=== PATIENT | female | born 1970 | race Caucasian/White ===

== ENCOUNTER 2020-12-14 20:47 | Emergency (ER) | payer OTHER ==
--- NOTE | 2020-12-14 22:18 | EDM.PDOC ---
ED HPI GENERAL MEDICAL PROBLEM - General Chief Complaint: Skin Complaint Stated Complaint: POSSIBLE CELLULITIS Time Seen by Provider: 12/14/20 22:00 Source of Information: Reports: Patient History Limitations: Reports: No Limitations - History of Present Illness INITIAL COMMENTS - FREE TEXT/NARRATIVE: 50-year-old female developed a left lateral ankle swelling and pain earlier t carol, redness and warmth to the skin. She is unsure if she was bit or stung but it was a gradual onset. She then later developed a red area on the calf and some soreness in her groin and posterior buttock on the left side. No fevers or chills, no nausea or vomiting. No trauma. She is otherwise healthy. Onset: Gradual Duration: Hour(s): (Symptoms for 12 hours) Location: Reports: Lower Extremity, Left left ankle Pain Score (Numeric/FACES): 4 - Related Data Allergies Allergy/AdvReac Type Severity Reaction Status Date / Time ciprofloxacin Allergy Pain Verified 12/14/20 21:42 Sulfa (Sulfonamide Allergy Hives Verified 12/14/20 21:42 Antibiotics) Home Meds: Home Meds Calcium Carbonate [Calcium] 1 tab PO DAILY 12/14/20 [History] Cholecalciferol (Vitamin D3) [Vitamin D3] 1 tab PO DAILY 12/14/20 [History] Escitalopram Oxalate [Lexapro] 1 tab PO DAILY 12/14/20 [History] Past Medical History [employer] History: Reports: - Infectious Disease History Infectious Disease History: Reports: Chicken Pox - Past Surgical History GI Surgical History: Reports: Cholecystectomy Female Surgical History: Reports: Section Social & Family History - Family History Family Medical History: No Pertinent Family History - Tobacco Use Tobacco Use Status *Q: Never Tobacco User - Caffeine Use Caffeine Use: Reports: Coffee, Tea - Recreational Drug Use Recreational Drug Use: No ED ROS GENERAL - Review of Systems Review Of Systems: See Below Constitutional: Denies: Fever, Chills, Malaise Respiratory: Denies: Shortness of Breath Cardiovascular: Denies: Chest Pain GI/Abdominal: Denies: Abdominal Pain : Reports: No Symptoms Musculoskeletal: Reports: Other (Slight soreness of the left gluteal area and left groin) Skin: Reports: Erythema (As mentioned in HPI) Neurological: Denies: Paresthesia ED EXAM, SKIN/RASH Exam: See Below Exam Limited By: No Limitations General Appearance: Alert, No Apparent Distress Head: Atraumatic Respiratory/Chest: No Respiratory Distress, Lungs Clear Cardiovascular: Regular Rate, Rhythm Extremities: Other (Left leg was examined and showed erythema and slight swelling around the left ankle. There was also a small amount of erythema on the posterior calf. The ankle was slightly warm to touch. No diffuse edema) Neurological: Alert, Oriented Psychiatric: Normal Affect, Normal Mood Skin: Erythema Course - Vital Signs Last Recorded V/S: Last Vital Signs Temp 97.7 F 12/14/20 21:44 Pulse 89 12/14/20 21:44 Resp 14 12/14/20 21:44 BP 119/55 L 12/14/20 21:44 Pulse Ox 94 L 12/14/20 21:44 - Re-Assessments/Exams Free Text/Narrative Re-Assessment/Exam: 12/15/20 00:46 Because it is unknown with the source of this is, this patient will be covered for cellulitis with Augmentin 875 mg twice daily. She will recheck on Thursday if not improving satisfactorily. Departure - Departure Time of Disposition: 22:29 Disposition: Home, Self-Care 01 Clinical Impression: Cellulitis of left leg - Discharge Information Instructions: Cellulitis, Adult Referrals: PCP,None [Primary Care Provider] - Forms: ED Department Discharge Care Plan Goals: Take Augmentin twice daily with food for at least 7 days, ibuprofen will help with discomfort. Continue activity as tolerated and recheck in the next 24 to 48 hours if worsening despite treatment. Consider rechecking next week if not improving satisfactorily. Sepsis Event Note (ED) - Evaluation Sepsis Screening Result: No Definite Risk - Focused Exam Vital Signs: Vital Signs Temp Pulse Resp BP Pulse Ox 12/14/20 21:44 97.7 F 89 14 119/55 L 94 L 12/14/20 21:26 97.7 F 89 14 119/55 L 94 L
== END 2020-12-14 22:30 | disposition home or self-care (01) ==
LOC: JP.ED 20:47
DX: L03.116 Cellulitis of left lower limb (principal); Z88.2 Allergy status to sulfonamides; Z88.1 Allergy status to other antibiotic agents
CPT/HCPCS: 99283